=== PATIENT | female | born 1970 | race Caucasian/White ===

== ENCOUNTER 2017-10-11 09:55 | Emergency (ER) | payer OTHER ==
[2017-10-11 10:06] VITALS: BP 123/81
--- NOTE | 2017-10-11 10:36 | UC ---
Abdominal Pain Female HPI - HPI Summary HPI Summary: 2 days of RLQ pain no fevers, eating and drinking well pain with movement in RLQ no Urinary sx, vag discharge - History of Current Complaint Chief Complaint: UCAbdominalPain Stated Complaint: PAIN LOWER RIGHT WAIST Time Seen by Provider: 10/11/17 10:23 Hx Obtained From: Patient Hx Last Menstrual Period: depo ?: No Onset/Duration: Gradual Onset, Lasting Days - 2, Still Present Timing: Intermittent Episodes Lasting: Severity Initially: Moderate Severity Currently: Mild Location: Discrete At: RLQ Radiates: No Character: Colicy, Cramping Aggravating Factor(s): Nothing Alleviating Factor(s): Nothing Associated Signs and Symptoms: Positive: Negative Allergies/Adverse Reactions: Allergies Allergy/AdvReac Type Severity Reaction Status Date / Time No Known Allergies Allergy Verified 10/11/17 10:02 Home Medications: Home Medications Levothyroxine TAB* [Synthroid 75 MCG TAB*] 75 mcg PO DAILY 10/11/17 [History Confirmed 10/11/17] PMH/Surg Hx/FS Hx/Imm Hx Previously Healthy: No Endocrine History: Hypothyroidism - Surgical History Surgical History: Yes Surgery Procedure, Year, and Place: c/sec x 2 - Family History Known Family History: Positive: None - Social History Occupation: Employed Full-time Lives: With Family Alcohol Use: Occasionally Substance Use Type: None Smoking Status (MU): Never Smoked Tobacco Review of Systems Constitutional: Negative Skin: Negative Eyes: Negative ENT: Negative Respiratory: Negative Cardiovascular: Negative Gastrointestinal: Abdominal Pain Genitourinary: Negative Motor: Negative Neurovascular: Negative Musculoskeletal: Negative Neurological: Negative Psychological: Negative Is Patient Immunocompromised?: No All Other Systems Reviewed And Are Negative: Yes Physical Exam Triage Information Reviewed: Yes Appearance: Well-Appearing, No Pain Distress, Well-Nourished Vital Signs: Initial Vital Signs Temp 98 F 10/11/17 10:03 Pulse 73 10/11/17 10:03 Resp 18 10/11/17 10:03 BP 123/81 10/11/17 10:03 Pulse Ox 100 10/11/17 10:03 Vital Signs Reviewed: Yes Eye Exam: Normal Eyes: Positive: Conjunctiva Clear ENT Exam: Normal ENT: Positive: Normal ENT inspection, Hearing grossly normal. Negative: Trismus , Muffled voice, Hoarse voice, Sinus tenderness Dental Exam: Normal Neck exam: Normal Neck: Positive: Supple, Nontender Respiratory Exam: Normal Respiratory: Positive: Chest non-tender, No respiratory distress, No accessory muscle use Cardiovascular Exam: Normal Cardiovascular: Positive: RRR, Pulses Normal, Brisk Capillary Refill Abdominal Exam: Normal Abdomen Description: Positive: No Organomegaly, Soft, Other: - right supre pubic tenderness. Negative: CVA Tenderness (R), CVA Tenderness (L), McBurney's Point Tenderness Bowel Sounds: Positive: Present Musculoskeletal Exam: Normal Musculoskeletal: Positive: Strength Intact, ROM Intact, No Edema Neurological Exam: Normal Neurological: Positive: Alert, Muscle Tone Normal Psychological Exam: Normal Skin Exam: Normal Diagnostics - Radiology No standard instances Xray Interpretation: No Acute Changes Radiology Interpretation Completed By: Radiologist Abd Pain Female Course/Dx - Course Course Of Treatment: Culture urnine, increase fluids, appy precautions reviewed with patient, follow with pcp 7 days - Differential Dx/Diagnosis Provider Diagnoses: Pelvic pain, hematuria (assymptomatic) Discharge - Discharge Plan Condition: Stable Disposition: HOME Patient Education Materials: Pelvic Pain in Women (ED), Pelvic Pain (ED) Referrals: Manfred FELDER,Sean Rubalcava [Primary Care Provider] - 1 Week
--- NOTE | 2017-10-12 07:27 | RAD ---
INDICATION: Right lower quadrant and pelvic pain. COMPARISON: There are no prior studies available for comparison. TECHNIQUE: Multiple real-time transvaginal images of the pelvis were obtained. FINDINGS: The uterus is heterogeneous in echogenicity and normal in size. The uterus measured 8.4 x 4.3 x 4.5 cm. The endometrial echo measured 3.9 cm in thickness. The right ovary measured 3.0 x 1.6 x 1.4 cm. The left ovary measured 2.0 x 1.1 x 2.0 cm. There is vascular flow within both ovaries. There are small bilateral ovarian follicular cysts. No free intraperitoneal fluid is seen. IMPRESSION: 1. NO EVIDENCE FOR OVARIAN TORSION. 2. HETEROGENEOUS UTERUS SUGGESTIVE OF FIBROID INFILTRATION OR ADENOMYOSIS.
== END 2017-10-11 12:18 | disposition home or self-care (01) ==
LOC: UCEAST 09:55
DX: R10.2 Pelvic and perineal pain (principal); R31.21 Asymptomatic microscopic hematuria
CPT/HCPCS: 76830; 76856; 81003; 81025; 87086; 99212; G0463